=== PATIENT | female | born 1980 | race Caucasian/White ===

== ENCOUNTER 2020-03-28 11:53 | Outpatient (REF) | payer BC, SELFPAY ==
[2020-03-28 21:22] LABS: HCT 43.9 % (36.0-46.0); HGB 14.9 g/dL (11.2-15.7); MCH 32.7 pg (27.0-33.0); MCHC 33.9 % (32.0-36.0); MCV 96.5 fL (80-95); MPV 11.3 fL (8.0-11.0); Platelet Count 332 10^3/uL (130-400); RBC 4.55 10^6/uL (3.93-5.22); RDW 12.5 % (11.7-14.6); RDW-SD 44.1 fL
[2020-03-28 22:51] LABS: Vitamin D 25 Total 47.2 ng/ml (30-100)
[2020-03-28 22:56] LABS: Anion Gap 9.3 mmol/L (3-11); BUN 7 mg/dL (7-18); CO2 26.7 mmol/L (21.0-32.0); CREATININE 0.84 mg/dL (0.55-1.02); Calcium 9.1 mg/dL (8.5-10.1); Chloride 103 mmol/L (98-107); Glucose 83 mg/dL (74-106); Potassium 4.2 mmol/L (3.5-5.1); Sodium 139 mmol/L (136-145); Vitamin B12 624 pg/mL (193-986)
== END 2020-03-28 12:13 ==
LOC: NCHCN 11:53
PROVIDERS: Visit Provider Nurse Practitioner Family
DX: F41.8 Other specified anxiety disorders (principal)
CPT/HCPCS: 80048; 82306; 85027; 82607; 84443

== ENCOUNTER 2021-01-24 11:51 | Outpatient (REF) | payer BC, SELFPAY ==
--- NOTE | 2021-01-24 13:40 | PAPFT_PTH ---
PATIENT: Arelis Desai [facility] U#:[id number] AGE/SX: 40/F ROOM: RE01/24/[address]: Graciela Adams : 1980 BED: DIS: 01/24/2021 SPEC #: [id number] RECD: 01/25/21 12:57 STATUS: HILARIO REMalik #: [id number] FADI: 01/24/21 13:[address]: Graciela Adams [facility] Cytology RECD BY: Kim Henry ENTERED: 01/25/21 12:57 SP TYPE: PAPFT ANTHONY DR: Unknown,Unknown Tissues: 1 - CX/ENDOCX FOR PAP SMEARS Procedures: PAP THIN PREP/[facility] Screening HPV DNA PROBE Comments: [id number]
== END 2021-01-24 11:52 | disposition home or self-care (01) ==
LOC: NCHCN 11:51
PROVIDERS: Visit Provider Nurse Practitioner Family
DX: Z12.4 Encounter for screening for malignant neoplasm of cervix (principal); Z11.51 Encounter for screening for human papillomavirus (HPV)
CPT/HCPCS: 88142; 87624